=== PATIENT | female | born 1975 | race Caucasian/White ===

== ENCOUNTER 2017-07-22 08:23 | Observation (INO) | payer OTHER ==
[~2017-07-22] VITALS: Ht 165.1 cm; Wt 55.3 kg
[2017-07-22] VITALS (9 sets, daily range): BP systolic 65–99; BP diastolic 40–61
[~2017-07-22 08:23] MED LIST: BIOT10005 PO; BUPIVACAINE-EPI 0.25%-1:200000 50 ML VIAL. ONE; CHOL100013 PO; CHOL10002 PO; DULO60CA6 PO; HYDR-2758 PO; IV RINGERS,LACTATED 1000ML 1,000 ML IV SCH; LIDOCAINE 1% PF 2 ML VIAL. ID PRN; MORPHINE SULFATE 2 MG/ML DISP.SYRIN. IV PRN; MULT1TAB52 PO; OMEG1CAP27 PO; ONDANSETRON PF 4 MG/2 ML VIAL. IV PRN; PROCHLORPERAZINE 10 MG/2 ML VIAL. IV PRN; TOPI100T42 PO; TRAZ100T12 PO; VITA80003 PO; ZINC50TA33 PO; [UNRECOGNIZED DRUG - OTHER] PO
[2017-07-22] MEDS ORDERED: DEXAMETHASONE SOD PHOS 20 MG/5 ML VIAL. ONE (08:41)
[2017-07-22] MEDS ORDERED: FAMOTIDINE 20 MG/2 ML VIAL ONE (08:41)
[2017-07-22] MEDS ORDERED: LIDOCAINE 2% PF Vial for OR 5 ML VIAL. ONE (08:41)
[2017-07-22] MEDS ORDERED: MIDAZOLAM HCL/PF 2 MG/2 ML VIAL. ONE (08:41)
[2017-07-22] MEDS ORDERED: PROPOFOL 20 ML IV ONE (08:41)
[2017-07-22] MEDS ORDERED: ONDANSETRON PF 4 MG/2 ML VIAL. ONE (08:41)
[2017-07-22] MEDS ORDERED: fentaNYL PF VIAL 100 MCG/2 ML VIAL ONE ×3 (08:42→12:17)
[2017-07-22 10:05] LABS: NEG OBC UR NEG; POS OBC UR POS
[2017-07-22] MEDS ORDERED: NEOSTIGMINE 10 MG/10 ML VIAL. ONE (11:13)
[2017-07-22] MEDS ORDERED: SEVOFLURANE 61 TO 120 MINUTES. IH ONE (11:30)
--- NOTE | 2017-07-22 11:44 | PDOC ---
BRIEF OPERATIVE NOTE Date: Jul 22, 2017 Pre-Op Diagnosis uterine fibroid, menorrhagia Post-Op Diagnosis same Procedure Performed LAVH/LSO/right salpingectomy Surgeon Dr. Eufemia Ramirez Corporate Specialist Dr. Cathleen Browning Anesthesiologist [facility] Anesthesia Type: General Blood Loss 200cc IV Fluid see anesthesia records Urine Output 125cc clear via robbins Specimens Obtained cervix, uterus, left tube and ovary, right tube Findings enlarged fibroid uterus, cystic left ovary, no significant pelvic adhesions Complications none OPerative Note [id number] EUFEMIA RAMIREZ MD Jul 22, 2017 11:44
[2017-07-22] MEDS ORDERED: SIMETHICONE 80 MG TAB.CHEW PO PRN (11:45)
[2017-07-22] MEDS ORDERED: diphenhydrAMINE 50 MG/ML VIAL IV PRN (11:45)
[2017-07-22] MEDS ORDERED: LACTULOSE 20 GM/30 ML SOLUTION. PO PRN (11:45)
[2017-07-22] MEDS ORDERED: NALOXONE 0.4 MG/ML VIAL. IV PRN (11:45)
[2017-07-22] MEDS ORDERED: diphenhydrAMINE HCL 25 MG CAPSULE PO PRN (11:45)
[2017-07-22] MEDS ORDERED: MORPHINE SULFATE 2 MG/ML DISP.SYRIN. IV PRN (11:45)
[2017-07-22] MEDS ORDERED: 0.9 % SODIUM CHLORIDE 10 ML DISP.SYRIN. IV PRN (11:45)
[2017-07-22] MEDS ORDERED: CALCIUM CARBONATE 500 MG TAB.CHEW PO PRN (11:45)
[2017-07-22] MEDS ORDERED: MAG HYDROX/ALUMINUM HYD/SIMETH 30 ML ORAL.SUSP PO PRN (11:45)
[2017-07-22] MEDS ORDERED: MAGNESIUM HYDROXIDE 2,400 MG/30 ML ORAL.SUSP. PO PRN (11:45)
[2017-07-22] MEDS ORDERED: KETOROLAC 15 MG/ML VIAL. IV PRN (11:45)
[2017-07-22] MEDS ORDERED: ZOLPIDEM 5 MG TABLET. PO PRN (11:45)
[2017-07-22] MEDS ORDERED: ONDANSETRON PF 4 MG/2 ML VIAL. IV PRN (11:45)
[2017-07-22] MEDS ORDERED: HYDROcodone/APAP 5/325MG 1 TAB TABLET PO PRN (11:45)
[2017-07-22] MEDS: fentaNYL PF VIAL 100 MCG/2 ML VIAL IV PRN ×5 (11:49→13:42)
[2017-07-22] MEDS: HYDROmorphone 2 MG/ML VIAL IV PRN ×2 (11:53→12:09)
[2017-07-22] MEDS: oxyCODONE/APAP 5/325 1 TAB TABLET PO PRN ×2 (14:58→19:24)
--- NOTE | 2017-07-22 20:11 | OP ---
DATE OF SURGERY: 07/22/2017 PREOPERATIVE DIAGNOSES: Uterine fibroid and a failed ablation with menorrhagia. POSTOPERATIVE DIAGNOSES: Uterine fibroid and a failed ablation with menorrhagia. PROCEDURES: Laparoscopic assisted vaginal hysterectomy, left salpingo-oophorectomy, right salpingectomy. SURGEON: Kris Morales MD [employer] ANIMAL CARETAKER: Dr. Cathleen Browning. ANESTHESIOLOGIST: Dr. Merida. ANESTHESIA: General endotracheal. ESTIMATED BLOOD LOSS: 200 mL. URINE OUTPUT: 125 mL clear via Triplett catheter. SPECIMEN REMOVED: Cervix, uterus, left tube and ovary, right tube. FINDINGS: Enlarged fibroid uterus, cystic left ovary. No significant pelvic adhesive disease. COMPLICATIONS: None. DESCRIPTION OF PROCEDURE: This patient was taken to the operating room where general anesthesia was placed. The patient was placed in dorsal lithotomy position in Beto stirrups. The patient's abdomen and vagina were prepped and draped in the normal sterile fashion and a Triplett catheter was inserted under sterile technique. After performing a timeout, a bivalve speculum was placed in the patient's vagina. A single-tooth tenaculum was used to grasp the anterior lip of the cervix. A 10 mL of 0.25% Marcaine with epinephrine was used to circumferentially inject around the cervix. This was for both hemostatic and hemodissection purposes later. At this point, the Valtchev uterine manipulator was placed through the endocervical os, locked on the single tooth tenaculum and the bivalve speculum was then removed. Top gloves were discarded and changed. It was decided to do a left upper quadrant entry as she had had a full abdominal lift vertical and transverse and her belly button had been moved and there was no good umbilical area, so a left upper quadrant entry was performed, making a small incision down from the breast bone under the midclavicular area using the 5 mm Visiport to directly enter the abdominal cavity. Opening patient pressure was 2 mmHg. Carbon dioxide gas was used to then appropriately insufflate the abdominal cavity to maintain a pressure of 15 mmHg. The patient was placed in Trendelenburg position. Right and left lower quadrant ports were placed under direct visualization atraumatically. First transilluminating the abdominal area getting an area free of any vessels and entering the right side, we went over a previous incision on purpose. The left side, the incision would have been right in front of our camera, so we could not use it, so we used one little lower and lateral. Then, the LigaSure Advance was used to cauterize and cut the left round ligament, creating a window in the mesosalpinx, going down and making the bladder flap sharply anteriorly with the monopolar tip. The left tube and ovary were elevated. There were some adhesions to the lower IP ligament, but we found the ureter coursing low. We stayed high on the ovary above the adhesion crossing the IP ligament, taking the left cystic ovary per patient request, cauterizing and cutting the IP and going down crossing where the round was and down to the level of the uterines on the left side. This was done starting the same on the right side at the round ligament, cauterizing and cutting it again making a window in the mesosalpinx, going down and further meeting that bladder flap anteriorly, but this time elevating just the right tube leaving the normal right ovary per patient request, going through the mesosalpinx, then crossing the uterine ovarian pedicle, cauterizing and cutting again with the LigaSure Advance, going down to the skeletonization to the uterines, getting the uterines, then crossing contralaterally, staying inside that uterine pedicle and vertical hugging the cervix, going down through the cardinal and broad ligaments to the level of the uterosacral ligaments bilaterally. At this point, the uterus was completely free and was completely blanched. There was some slight bleeding from the serosal surface of the right ovary. This was cauterized before going below and cleared. At this point, all instruments were removed from the abdomen and attention was turned vaginally. The Valtchev and single tooth tenaculum were removed. A weighted speculum was placed in the patient's vagina. Thyroid Tiffanie clamps were placed on the anterior and posterior lips of the cervix respectively. Once this was done, a scalpel was used to make a circumferential incision in the cervix. An open Ray-Fouzia 4 x 4 was used to gently push up the anterior bladder peritoneum. The anterior cul-de-sac was bluntly entered. The 4 x 4 was removed and the curved Bancroft was placed in this opening. The cervix was elevated. The posterior cul-de-sac was sharply entered with the Wang scissors. It was extended bilaterally. A #0 Vicryl stitch was used to secure the posterior peritoneum to the vaginal cuff. It was tagged with a curved Iveth clamp. The needle was cut and passed off. A short weighted speculum was removed and replaced with a long weighted Jenny speculum. At this point, curved Otilia clamps were placed times 2 on the patient's left uterosacral ligament. They were doubly clamped times 2, cut with Wang scissors and suture ligated with #0 Vicryl. The second one was taken and tagged to the vaginal cuff and tagged with a straight Iveth clamp and the needle was cut off. This was done exactly the same on the right side, double clamping the uterosacrals with curved Heaneys, cutting with Wang scissors and suture ligating times 2 with #0 Vicryl, taking the second one through the vaginal cuff and tagging it with a straight Iveth clamp and cutting and passing the needle off. The remaining pedicles on both sides were delineated with a curved right angle clamp and the vaginal LigaSure Max was used to cauterize these. The cervix, uterus, left tube and ovary, and right tube were delivered in total and passed off for permanent pathology. The pedicles were examined and found to be dry. Some clots were cleared from the cul-de-sac. I am presuming this was from the ovarian serosal surface that had previously been bleeding on the right, but the pedicles looked good, so the anterior bladder peritoneum was grasped with a long Allis, 2-0 Vicryl was taken through this, the left uterosacral ligament, posterior peritoneum and right uterosacral ligament, thus closing the peritoneum in a pursestring like fashion. Once this was done, the right and left uterosacral tags were clipped. The vaginal cuff was closed in an anterior to posterior running locked fashion with a full length 2-0 Vicryl and it was tied to the posterior cuff tag. Using a sponge stick to examine the cuff, it was completely intact and dry, so all instruments were removed from the vagina. All gloves were discarded and changed. A second look was now taken from above reinsufflating the abdominal cavity, putting her back in Trendelenburg position and irrigating. The cuff was completely hemostatic. The serosal surface on the ovary had stopped bleeding. Copious irrigation revealed hemostasis. Some fluid was sucked out of the gutters, but they were clear. We found a normal appendix on the right. Tisseel was placed over the ovarian serosal surface and the cuff with excellent results. We did release some gas. It remained hemostatic and nothing was welling up in the pelvis. The scope was moved to look at the left upper quadrant entry. It was clear and of any adhesions. The scope was placed back there. The right and left lower quadrant ports were removed under direct visualization. These too were hemostatic. Gas was then released from this left upper quadrant port, then it was removed as well. All three port sites were closed with 4-0 nylon at the level of the skin and injected with a total of 10 mL of local. KRIS MORALES MD DR: MARTÍNEZ/erlin JOB#: [id number] / [id number]
[2017-07-23 05:07] VITALS: BP 94/54
[2017-07-23 06:07] LABS: CALCIUM 8.3 mg/dL (8.5-10.1); CREATININE 0.7 mg/dL (0.6-1.0); GFR 91.3; POTASSIUM 3.4 mmol/L (3.5-5.1)
--- NOTE | 2017-07-23 08:39 | PDOC ---
SURGICAL PROGRESS NOTE Subjective Doing well without complaints. No pain pills since last night. No vaginal bleeding. Tolerating po without problems and voiding without catheter. Vital Signs Vital Signs Date Time Temp Pulse Resp B/P (MAP) Pulse Ox O2 Delivery O2 Flow Rate FiO2 07/23/17 05:07 98.4 80 94/54 (67) 96 Room Air 98.4 07/22/17 22:17 16 07/22/17 19:38 10.0 PATIENT HAS A GRACE: No General: Alert, Oriented X3, Cooperative, No acute distress HEENT: Atraumatic Heart: Regular rate Abdomen: Soft, No tenderness, Other (all port sites c/d/i) Extremities: No clubbing, No cyanosis, No edema, No tenderness/swelling Skin: No rashes, No breakdown Neuro: Normal speech Psych/Mental Status: Mental status NL, Mood NL Labs Laboratory Tests Test 07/22/17 08:30 07/23/17 05:00 Urine Test Negative (NEG) Hematocrit 31.5 % (36.0-47.0) Sodium Level 140 mmol/L (136-145) Potassium Level 3.4 mmol/L (3.5-5.1) Chloride Level 107 mmol/L (98-107) Carbon Dioxide Level 23 mmol/L (21-32) Anion Gap 10 (6-14) Blood Urea Nitrogen 12 mg/dL (7-20) Creatinine 0.7 mg/dL (0.6-1.0) Estimated GFR (Cockcroft-Gault) 91.3 Glucose Level 75 mg/dL (70-99) Calcium Level 8.3 mg/dL (8.5-10.1) Laboratory Tests Test 07/23/17 05:00 Hematocrit 31.5 % (36.0-47.0) Sodium Level 140 mmol/L (136-145) Potassium Level 3.4 mmol/L (3.5-5.1) Chloride Level 107 mmol/L (98-107) Carbon Dioxide Level 23 mmol/L (21-32) Anion Gap 10 (6-14) Blood Urea Nitrogen 12 mg/dL (7-20) Creatinine 0.7 mg/dL (0.6-1.0) Estimated GFR (Cockcroft-Gault) 91.3 Glucose Level 75 mg/dL (70-99) Calcium Level 8.3 mg/dL (8.5-10.1) Cardiovascular: No pertinent hx Pulmonary: No pertinent hx Heme/Onc: No pertinent hx Rheumatologic: No pertinent hx Infectious disease: No pertinent hx Assessment/Plan POD#1 s/p LAVH with unilateral oopherectomy\ Routine PO care d/c to home today already has pain pills filled at home may alternate OTC ibuprofen with this as needed also NPV x 6 weeks Light/limited activity x 2 [address] while on narcotic pain pills keep scheduled fu with me in the office Call or return sooner for any other questions or concerns not limited to but including pain unrelieved with pain pills, increased or unexplained vaginal bleeding or T>100.4 Problems: KRIS RAMIREZ MD Jul 23, 2017 08:39
--- NOTE | 2017-07-23 08:45 | PDOC3 ---
Discharge Summary Visit Information Date of Admission: Jul 22, 2017 Date of Discharge: Jul 23, 2017 Final Diagnosis pelvic pain, menorrhagia Brief Hospital Course Allergies Allergies Coded Allergies Type Severity Reaction Last Updated Verified No Known Drug Allergies 07/22/17 No Vital Signs Vital Signs Date Time Temp Pulse Resp B/P (MAP) Pulse Ox O2 Delivery O2 Flow Rate FiO2 07/23/17 05:07 98.4 80 94/54 (67) 96 Room Air 98.4 07/22/17 22:17 16 07/22/17 19:38 10.0 Lab Results Laboratory Tests Test 07/22/17 08:30 07/23/17 05:00 Urine Test Negative (NEG) Hematocrit 31.5 % (36.0-47.0) Sodium Level 140 mmol/L (136-145) Potassium Level 3.4 mmol/L (3.5-5.1) Chloride Level 107 mmol/L (98-107) Carbon Dioxide Level 23 mmol/L (21-32) Anion Gap 10 (6-14) Blood Urea Nitrogen 12 mg/dL (7-20) Creatinine 0.7 mg/dL (0.6-1.0) Estimated GFR (Cockcroft-Gault) 91.3 Glucose Level 75 mg/dL (70-99) Calcium Level 8.3 mg/dL (8.5-10.1) Laboratory Tests Test 07/23/17 05:00 Hematocrit 31.5 % (36.0-47.0) Sodium Level 140 mmol/L (136-145) Potassium Level 3.4 mmol/L (3.5-5.1) Chloride Level 107 mmol/L (98-107) Carbon Dioxide Level 23 mmol/L (21-32) Anion Gap 10 (6-14) Blood Urea Nitrogen 12 mg/dL (7-20) Creatinine 0.7 mg/dL (0.6-1.0) Estimated GFR (Cockcroft-Gault) 91.3 Glucose Level 75 mg/dL (70-99) Calcium Level 8.3 mg/dL (8.5-10.1) Brief Hospital Course Ms. Brewer is a 42 old female who presented with menorrhagia and pelvic pain. She underwnt an LAVH/LSO and right salpingectomy without complications. She has had an unremarkable postoperative course. AFVSS tolerating regular diet, voiding without catheter and will go home later today Discharge Information Condition at Discharge: Improved Follow Up: Weeks Disposition/Orders: D/C to Home Scheduled Biotin (Biotin), 20,000 MCG PO DAILY, (Reported) Cholecalciferol (Vitamin D3) (Vitamin D), 1,000 UNIT PO DAILY, (Reported) Cholecalciferol (Vitamin D3) (Vitamin D), 1 CAP PO DAILY, (Reported) Duloxetine Hcl (Cymbalta), 1 CAP PO DAILY, (Reported) Multivitamin (Multivitamins), 1 TAB PO DAILY, (Reported) [place]-3 Fatty Acids/Fish Oil (Fish Oil 1,000 Mg Softgel), 1 EACH PO DAILY, ( Reported) Topiramate (Topamax), 100 MG PO DAILY, (Reported) Trazodone Hcl (Trazodone Hcl), 1 TAB PO QHS, (Reported) Vitamin A (Vitamin A), 8,000 UNIT PO DAILY, (Reported) Zinc Amino Acid Chelate (Zinc), 50 MG PO BID, (Reported) [journey vitamin], 1 CAP PO TID, (Reported) Scheduled PRN Hydrocodone Bit/Acetaminophen (Hydrocodone-Apap 5-325 ), 2 TAB PO PRN Q6HRS PRN for PAIN, (Reported) Patient Instructions Patient Instructions POD#1 s/p LAVH with unilateral oopherectomy\ Routine PO care d/c to home today already has pain pills filled at home may alternate OTC ibuprofen with this as needed also NPV x 6 weeks Light/limited activity x 2 weeks [address] while on narcotic pain pills keep scheduled fu with me in the office Call or return sooner for any other questions or concerns not limited to but including pain unrelieved with pain pills, increased or unexplained vaginal bleeding or T>100.4 KRIS RMAIREZ MD Jul 23, 2017 08:45
[2017-07-23 10:00] VITALS: BP 98/55
[2017-07-23] MEDS ORDERED: OXYC-323 PO (10:07)
--- NOTE | 2017-07-26 11:49 | PATHOLOGY ---
PATHOLOGY REPORT * * * * * * * * FINAL DIAGNOSIS: Uterus with attached left adnexa and right fallopian tube, laparoscopic assisted vaginal hysterectomy with left salpingo-oophorectomy and right salpingectomy: - Mild chronic cervicitis, focal. - Adenomyosis, uterine corpus. - Status post endometrial ablation with focal residual proliferative endometrium. - Congestion of bilateral fallopian tubes. - Cystic follicles of left ovary. (JPM:ta; 07/26/2017) COMMENT: There is no evidence of malignancy. REPORT ELECTRONICALLY SIGNED BY: Rene Montes M.D. DATE/TIME: 07/26/2017 11:49 * * * * * * * * GROSS PATHOLOGY: The specimen is received in formalin labeled "Isi Carrillo, uterus, cervix, bilateral fallopian tubes, left ovary". Received is a 101 g, 8.0 x 5.1 x 4.7 cm uterus with attached cervix, attached left adnexa weighing 17 g, and attached right fallopian tube weighing 2 g. The uterine serosa is light villarreal, smooth in appearance. The 0.8 cm cervical os is surrounded by pale villarreal, smooth to slightly wrinkled ectocervical mucosa. The uterus is oriented using the peritoneal reflection and the anterior paracervical margin is inked black. The uterus is opened laterally to reveal a pink-villarreal endocervical canal measuring 2.3 cm in length. The endometrial cavity is linear, stenotic in appearance and measures 2.7 cm in length by 0.4 cm in width. The endometrium is pale villarreal, glistening to granular in appearance and measures less than 0.1 cm in thickness. Serial sectioning reveals a pale villarreal, trabeculated myometrium measuring up to 2.3 cm in thickness displaying evidence of adenomyosis. The left adnexa consists of a fimbriated fallopian tube measuring 1.6 cm in length by up to 0.6 cm in diameter attached to a 4.8 x 4.3 x 2.2 cm ovary. Sectioning through the fallopian tube reveals a pinpoint lumen and the fallopian tube appears grossly unremarkable. Sectioning through the ovary reveals multiple cystic structures ranging in size from 0.3 to 1.3 cm filled with blood-tinged fluid. The remaining cut surfaces display pale villarreal, normal ovarian stroma. The right fimbriated fallopian tube measures 3.2 cm in length by 0.6 cm in diameter displaying several small paratubal cysts measuring 0.1 cm each. Sectioning reveals a pinpoint lumen and the fallopian tube appears grossly unremarkable. The specimen is submitted representatively as follows: A1 12:00 cervix A2 6:00 cervix A3 anterior endomyometrium A4 posterior endomyometrium A5 left adnexa A6 right fallopian tube. (CAA; 07/23/2017) INITIAL CPT CODE(S): A; 85209 Professional services performed [place] [address] Technical services performed by [facility] at [address] [place] [address], [address] [address]. SPECIMEN(S) RECEIVED: A.Uterus, cervix, bilateral fallopian tubes and left ovary CLINICAL HISTORY: None provided PATIENT: ISI CARRILLO /AGE: 401/19/1975 (Age: 42) PATIENT #: [id number] ALT CASE #: SPECIMEN COLLECTION DATE: 07/22/2017 SPECIMEN RECEIVED DATE: 07/22/2017 [facility] - [id number] [place] [id number] - PHONE: [phone] * * * END OF REPORT * * *
== END 2017-07-23 10:29 | disposition home or self-care (01) ==
LOC: SURG 08:23 → 3 NORTH 11:47
PROVIDERS: ADMIT Obstetrics & Gynecology; ATTEND Obstetrics & Gynecology
DX: D25.9 Leiomyoma of uterus, unspecified (principal); N92.0 Excessive and frequent menstruation with regular cycle; N83.202 Unspecified ovarian cyst, left side
CPT/HCPCS: 36415; 58552; 80048; 81025; 85014; 86850; 86900; 86901; C1769; G0378; G0379; J0690; J0780; J1100; J1170; J2250; J2405; J2704; J2710; J3010; J7030; S0028; 88307; J7120; J2001

== ENCOUNTER 2017-12-22 18:28 | Emergency (ER) | payer OTHER ==
[2017-12-22 18:49] LABS: BILIRUBIN,URINE NEGATIVE (NEG); CLARITY,URINE TURBID; COLOR,URINE YELLOW; GLUCOSE,URINE NEGATIVE (NEG); NITRITE,URINE NEGATIVE (NEG); PROTEIN,URINE NEGATIVE (NEG-TRACE)
[2017-12-22 18:51] LABS: URINE HCG POC HCG NEGATIVE (Negative)
[2017-12-22 18:55] LABS: AMORPHOUS SEDIMENT,UR PRESENT /HPF; BACTERIA,URINE FEW /HPF (0-FEW); RBC,URINE 0 /HPF (0-2); SQUAMOUS EPITHELIAL CELL,UR FEW /LPF; WBC,URINE 0 /HPF (0-4)
[2017-12-22 19:10] LABS: ADD MAN DIFF? NO
[2017-12-22] MEDS: fentaNYL PF VIAL 100 MCG/2 ML VIAL IV ×2 (19:10→19:54)
[2017-12-22] MEDS: ONDANSETRON PF 4 MG/2 ML VIAL. IV (19:10)
[2017-12-22 19:11] LABS: BASO # 0.1 x10^3/uL (0.0-0.2); BASO % 1 % (0-3); EOS # 0.1 x10^3/uL (0.0-0.7); EOS % 1 % (0-3); HEMATOCRIT 37.8 % (36.0-47.0); HEMOGLOBIN 12.9 g/dL (12.0-15.5); LYMPH # 3.6 x10^3/uL (1.0-4.8); LYMPH % 40 % (24-48); MEAN CORPUSCULAR HEMOGLOBIN 31 pg (25-35); MEAN CORPUSCULAR HGB CONC 34 g/dL (31-37); MEAN CORPUSCULAR VOLUME 90 fL (79-100); MONO # 0.7 x10^3/uL (0.0-1.1); MONO % 8 % (0-9); NEUT # 4.5 x10^3uL (1.8-7.7); NEUT % 50 % (31-73); PLATELET COUNT 193 x10^3/uL (140-400); RED BLOOD COUNT 4.22 x10^6/uL (3.50-5.40); RED CELL DISTRIBUTION WIDTH 13.8 % (11.5-14.5)
[2017-12-22] MEDS: IV NORMAL SALINE 1000ML BAG 1,000 ML IV (19:11)
[2017-12-22 19:19] LABS: ANION GAP 10 (6-14); BLOOD UREA NITROGEN 14 mg/dL (7-20); BUN/CREATININE RATIO 16 (6-20); CALCIUM 8.9 mg/dL (8.5-10.1); CARBON DIOXIDE 25 mmol/L (21-32); CHLORIDE 105 mmol/L (98-107); CREATININE 0.9 mg/dL (0.6-1.0); GFR 68.3; GLUCOSE 94 mg/dL (70-99); POTASSIUM 3.7 mmol/L (3.5-5.1); SODIUM 140 mmol/L (136-145)
[2017-12-22 19:24] LABS: ALBUMIN 3.7 g/dL (3.4-5.0); ALBUMIN/GLOBULIN RATIO 1.2 (1.0-1.7); ALK PHOS 92 U/L (46-116); ALT (SGPT) 36 U/L (14-59); AST (SGOT) 23 U/L (15-37); LIPASE 101 U/L (73-393); TOTAL BILIRUBIN 0.3 mg/dL (0.2-1.0); TOTAL PROTEIN 6.9 g/dL (6.4-8.2)
[2017-12-22] MEDS ORDERED: CONTRAST GIVEN MC (19:30)
[2017-12-22] MEDS: IOHEXOL 300 MG/ML 100ML VIAL. IV (19:41)
[2017-12-22] MEDS: oxyCODONE/APAP 5/325 1 TAB TABLET PO (21:29)
== END 2017-12-22 21:33 | disposition home or self-care (01) ==
LOC: ER 18:28
DX: R10.31 Right lower quadrant pain (principal); R11.0 Nausea; G43.909 Migraine, unspecified, not intractable, without status migrainosus; Z90.49 Acquired absence of other specified parts of digestive tract; Z90.710 Acquired absence of both cervix and uterus; Z98.84 Bariatric surgery status; M79.7 Fibromyalgia; M19.90 Unspecified osteoarthritis, unspecified site
CPT/HCPCS: 36415; 74177; 80053; 81001; 81025; 83690; 85025; 96361; 96374; 96375; 96376; 99285-25; J2405; J3010; J7030; Q9967

== ENCOUNTER 2018-01-03 14:02 | Emergency (ER) | payer SELFPAY, OTHER ==
[2018-01-03] MEDS: ACETAMINOPHEN 325 MG TABLET. PO (16:03)
== END 2018-01-03 16:08 | disposition home or self-care (01) ==
LOC: ER 14:02
DX: S06.0X9A Concussion with loss of consciousness of unspecified duration, initial encounter (principal); M19.90 Unspecified osteoarthritis, unspecified site; F32.9 Major depressive disorder, single episode, unspecified; M79.7 Fibromyalgia; G43.909 Migraine, unspecified, not intractable, without status migrainosus; Z90.49 Acquired absence of other specified parts of digestive tract; Z90.710 Acquired absence of both cervix and uterus; Y04.2XXA Assault by strike against or bumped into by another person, initial encounter; Y93.89 Activity, other specified; Y92.89 Other specified places as the place of occurrence of the external cause; Y99.8 Other external cause status
CPT/HCPCS: 70450; 99284-25

== ENCOUNTER → 2018-04-21 | Outpatient (CLI) | payer OTHER | END | disposition home or self-care (01) | LOC: KCIC MAMMO 09:44 | DX: N63.10 Unspecified lump in the right breast, unspecified quadrant (principal) | CPT/HCPCS: 76641; 77066; G0279 ==

== ENCOUNTER → 2020-04-09 | Outpatient (CLI) | payer OTHER ==
[2018-01-03 14:20] VITALS: BP 111/56
[~2020-04-09] MED LIST changes: -BUPIVACAINE-EPI 0.25%-1:200000 50 ML VIAL. ONE; -HYDR-2758 PO; +HYDR-2761 PO; +HYOS0.12 PO; -IV RINGERS,LACTATED 1000ML 1,000 ML IV SCH; -LIDOCAINE 1% PF 2 ML VIAL. ID PRN; -MORPHINE SULFATE 2 MG/ML DISP.SYRIN. IV PRN; +MULT-445 PO; -MULT1TAB52 PO; -ONDANSETRON PF 4 MG/2 ML VIAL. IV PRN; +OXYC1TAB15 PO; -PROCHLORPERAZINE 10 MG/2 ML VIAL. IV PRN; +TRAZ-123 PO; -TRAZ100T12 PO
--- NOTE | 2020-04-09 12:54 | KCIC ---
Bilateral digital screening mammograms and tomosynthesis Reason for examination: Routine screening. Comparison is made to previous study dated mammogram April 21, 2018 and priors Routine CC and MLO digital views obtained. Interpretation was made with the benefit of CAD. The skin and nipples show no abnormalities. No abnormal axillary lymph nodes are seen. The breast parenchyma is heterogeneously dense. (Breast density: Category C.) There are no suspicious masses, suspicious calcifications or architectural distortion. The breast density is mildly decreased since the prior study likely due to involutional changes. Benign calcifications. Subcentimeter left upper outer breast intramammary lymph node is stable. Impression: Negative mammogram. Recommend routine screening. ?Your patient's mammogram demonstrates that she has dense breast tissue (breast density category C or D), which could hide abnormalities, and if she has other risk factors for breast cancer that have been identified, she might benefit from supplemental screening tests that may be suggested by you as her ordering physician. Dense breast tissue, in and of itself, is a relatively common condition. Therefore, this information is not provided to cause undue concern, but rather to raise your awareness and to promote discussion with your patient regarding the presence of other risk factors, in addition to dense breast tissue. Your patient's mammography results will be sent to her. BI-RAD Category 1: Negative. "Our facility is accredited by the [employer] Mammography Program." This patient's information has been entered into a reminder system for the patient to be notified with the results of her examination and a target date for the next mammogram. Electronically signed by: Chandler Montalvo MD (04/09/2020 12:51 PM) [id number]
== END | disposition home or self-care (01) ==
LOC: KCIC MAMMO 10:27
PROVIDERS: ATTEND Obstetrics & Gynecology
DX: Z12.31 Encounter for screening mammogram for malignant neoplasm of breast (principal); N64.89 Other specified disorders of breast
CPT/HCPCS: 77063; 77067